=== PATIENT | female | born 1960 | race Caucasian/White ===

== ENCOUNTER → 2017-01-09 | Outpatient (CLI) | payer BC ==
--- NOTE | 2017-01-12 13:11 | MM ---
Reason for exam: screening (asymptomatic). Last mammogram was performed 1 year and 1 month ago. History: Patient is postmenopausal. Physical Findings: A clinical breast exam by your physician is recommended on an annual basis and results should be correlated with mammographic findings. MG Screening Mammo w CAD Bilateral CC and MLO view(s) were taken. Prior study comparison: December 25, 2015, bilateral MG screening mammo w CAD. December 11, 2014, bilateral MG screening mammo w CAD. There are scattered fibroglandular densities. No suspicious abnormality. ASSESSMENT: Negative, BI-RAD 1 RECOMMENDATION: Routine screening mammogram of both breasts in 1 year.
== END | disposition home or self-care (01) ==
LOC: RADMAMWWP 07:54
PROVIDERS: ATTEND Obstetrics & Gynecology
DX: Z12.31 Encounter for screening mammogram for malignant neoplasm of breast (principal)

== ENCOUNTER → 2018-03-19 | Outpatient (CLI) | payer BC ==
--- NOTE | 2018-03-22 10:55 | BD ---
EXAMINATION TYPE: Axial Bone Density DATE OF EXAM: 03/19/2018 COMPARISON: NONE CLINICAL HISTORY: Postmenopausal female. Osteoporosis screening. Height: 5 FT 3 1/2 IN Weight: 233 FRAX RISK QUESTIONS: Secondary Osteoporosis: Current Tobacco Use: YES RISK FACTORS HISTORY OF: Active: YES Postmenopausal woman: AGE 49 MEDICATIONS: Additional Medications: NONE Additional History: EXAM MEASUREMENTS: Bone mineral densitometry was performed using the [employer] System. Bone mineral density as measured about the Lumbar spine is: ----- L1-L4(G/cm2): 1.204 T Score Values are as follows: ----- L2: 0.7 ----- L3: -0.7 ----- L4: 0.1 ----- L1-L4: 0.2 BASELINE Bone mineral density about the R hip (g/cm2): 1.182 Bone mineral density about the L hip (g/cm2): 1.064 T Score values are as follows: -----R Neck: 1.0 -----L Neck: 0.2 -----R Total: 1.8 -----L Total: 0.7 BASELINE IMPRESSION: Normal (Values between +1 and -1 indicate normal bone mass). Consider repeating this study in 5 years or sooner if there is some new clinical indication. NOTE: T-SCORE=SD OF THE YOUNG ADULT MEAN.
--- NOTE | 2018-03-26 08:25 | MM ---
Reason for exam: screening (asymptomatic). Last mammogram was performed 1 year and 2 months ago. History: Patient is postmenopausal. MG 3D Screening Mammo W/Cad Bilateral CC and MLO view(s) were taken. Prior study comparison: January 09, 2017, bilateral MG screening mammo w CAD. December 25, 2015, bilateral MG screening mammo w CAD. There are scattered fibroglandular densities. No suspicious abnormality. No significant changes when compared with prior studies. ASSESSMENT: Negative, BI-RAD 1 RECOMMENDATION: Routine screening mammogram of both breasts in 1 year.
== END | disposition home or self-care (01) ==
LOC: RADMAMWWP 15:24
PROVIDERS: ATTEND Obstetrics & Gynecology
DX: Z12.31 Encounter for screening mammogram for malignant neoplasm of breast (principal); Z78.0 Asymptomatic menopausal state
CPT/HCPCS: 77063; 77067; 77080

== ENCOUNTER → 2019-08-22 | Outpatient (CLI) | payer BC ==
--- NOTE | 2019-08-23 12:02 | MM ---
Reason for exam: screening (asymptomatic). Last mammogram was performed 1 year and 5 months ago. History: Patient is postmenopausal. Physical Findings: A clinical breast exam by your physician is recommended on an annual basis and results should be correlated with mammographic findings. MG 3D Screening Mammo W/Cad Bilateral CC and MLO view(s) were taken. Prior study comparison: March 19, 2018, bilateral MG 3d screening mammo w/cad. January 09, 2017, bilateral MG screening mammo w CAD. There are scattered fibroglandular densities. There is no discrete abnormality. No significant changes when compared with prior studies. ASSESSMENT: Negative, BI-RAD 1 RECOMMENDATION: Routine screening mammogram of both breasts in 1 year.
== END | disposition home or self-care (01) ==
LOC: RADMAMWWP 09:06
PROVIDERS: ATTEND Obstetrics & Gynecology
DX: Z12.31 Encounter for screening mammogram for malignant neoplasm of breast (principal)
CPT/HCPCS: 77063; 77067

== ENCOUNTER → 2020-06-15 | Outpatient (CLI) | payer OTHER | END | disposition home or self-care (01) | LOC: LABPAT 09:55 | PROVIDERS: ATTEND Orthopaedic Surgery | DX: Z01.812 Encounter for preprocedural laboratory examination (principal); M16.11 Unilateral primary osteoarthritis, right hip | CPT/HCPCS: 36415; 86850; 86870; 86880; 86900; 86901; 87070 ==

== ENCOUNTER 2020-06-26 08:50 | Day surgery (SDC) | payer OTHER ==
[2020-06-20 09:57] VITALS: BMI 38.6
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
[~2020-06-26 08:50] MED LIST: ACETAMINOPHEN TAB 500 MG TAB PO PRN; DEXAMETHASONE SOD PHOSPHATE 4 MG/ML 1 ML VIAL IV ONE; LIDOCAINE 1% (10MG/ML) FOR IV START INTRADERMA PRN; MELOXICAM 7.5 MG TAB PO PRN; ONDANSETRON 4 MG/2 ML VIAL IVP PRN; TRANEXAMIC ACID 1,000 MG in SODIUM CHLORIDE 0.9% 100 ML IVPB PRN
[2020-06-26] MEDS: LACTATED RINGERS 1,000 ML IV SCH ×3 (09:45→23:47)
[2020-06-26] MEDS ORDERED: ONDANSETRON 4 MG/2 ML VIAL ONE (09:54)
[2020-06-26] MEDS ORDERED: fentaNYL (PF) 50 MCG/ML 2 ML AMP IV ONE ×2 (10:11→10:15)
[2020-06-26] MEDS ORDERED: MIDAZOLAM 2 MG/2 ML VIAL IV ONE ×2 (10:11→10:15)
[2020-06-26] MEDS ORDERED: PROPOFOL 10 MG/ML 20 ML VIAL IV ONE (10:24)
[2020-06-26] MEDS ORDERED: ROPIVACAINE 5 MG/ML 30 ML VIAL ONE (10:24)
[2020-06-26] MEDS ORDERED: MIDAZOLAM 2 MG/2 ML VIAL ONE (10:24)
[2020-06-26] MEDS ORDERED: SODIUM CHLORIDE 0.9% 100 ML BAG ONE (10:24)
[2020-06-26] MEDS ORDERED: LIDOCAINE 1% INJ 10MG/ML (20 ML MDV) ONE (10:24)
[2020-06-26] MEDS ORDERED: fentaNYL (PF) 50 MCG/ML 2 ML AMP ONE (10:24)
[2020-06-26] MEDS ORDERED: SUCCINYLCHOLINE CHLORIDE VIAL 200 MG/10 ML VIAL IV ONE (10:24)
[2020-06-26] MEDS ORDERED: TRANEXAMIC ACID 1,000 MG/10 ML VIAL ONE (10:24)
[2020-06-26] MEDS ORDERED: SODIUM CHLORIDE 0.9% (PF) 10 ML VIAL ONE (10:24)
[2020-06-26] MEDS ORDERED: HYDROmorphone (PF) 1 MG/ML ONE (10:24)
[2020-06-26] MEDS ORDERED: LACTATED RINGERS 1,000 ML IV ONE ×2 (10:29→12:57)
[2020-06-26] MEDS ORDERED: ceFAZolin 3,000 MG in SODIUM CHLORIDE 0.9% IRRIGATIO 3,000 ML IRRIGATION ONE (11:05)
--- NOTE | 2020-06-26 11:22 | P.ANPRN ---
Procedure Note - Anesthesia - Nerve Block Performed Right Erector Spinae Single Time Out Performed: Yes (1010) Date of Procedure: 06/26/20 Procedure Start Time: : Procedure Stop Time: Location of Patient: PreOp Indication: Acute Post-Operative Pain, Analgesia, Dx/Pain Location, Requested by Surgeon Specifically requested for management of pain by : Jean Carlos Lombardo Sedation Type: Sedate with meaningful contact maintained Preparation: Sterile Prep Position: Left Lateral Catheter: None Needle Types: Pajunk Needle Gauge: 20 Ultrasound used to visualize needle placement: Yes Ultrasound used to observe medication spread: Yes Injectate: 0.5% Ropivacaine (see comment for volume) (20 mL) Blood Aspirated: No Pain Paresthesia on Injection Noted: No Resistance on Injection: Normal Image Stored and Saved: Yes Events: Uneventful and Well Tolerated
[2020-06-26] MEDS ORDERED: HYDROcodone/APAP 7.5-325MG 1 EACH TAB PO PRN (12:51)
[2020-06-26] MEDS ORDERED: NALOXONE 0.4 MG/ML 1 ML VIAL IV PRN (12:51)
--- NOTE | 2020-06-26 13:19 | P.OP ---
Date of Procedure: 06/26/20 Preoperative Diagnosis: Right hip severe osteoarthrosis Postoperative Diagnosis: Same Procedure(s) Performed: Right total hip arthroplastypress-fit- lateral approach Implants: Depuy Corail size 10 standard collared press-fit femoral stem, 36mm+1.5 cobalt chrome femoral head, 52 mm [place] acetabular shell with neutral polyethylene liner. Anesthesia: SADIAA Surgeon: Jean Carlos Lombardo Flight Superintendent #1: Kurt Eagle Estimated Blood Loss (ml): 200 Pathology: other (Femoral head) Condition: stable Disposition: PACU Indications for Procedure: The patient's a 60-year-old female presents with progressive right hip pain secondary osteoarthrosis despite conservative measures. A discussion of the risks and benefits of operative intervention versus continued conservative measures was made with patient. She opted to proceed with surgery. Operative risks to include infection, neurovascular injury, development of blood clots, possible component loosening, possible ligament discrepancy, possible fracture, possible instability and need for subsequent procedures was discussed. Informed consent was obtained. Operative Findings: As below Description of Procedure: The patient was brought to the operating room, and final anesthesia was attempted but was unsuccessful. The patient underwent general endotracheal intubation.. The bony prominences were appropriately padded. The pelvis was stable perpendicular to the floor with a pegboard. The right lower extremity was prepped and draped in normal fashion. A 12 cm incision was then made centered over the greater trochanter extending superiorly to level the ASIS and distally in line with the femoral shaft. The skin and subcutaneous tissues were divided sharply. Electrocautery was used for hemostasis. The fascia ernie and gluteus mira fascia was split in line with the skin incision. The muscle fibers were bluntly dissected proximally. A self-retaining retractor was placed. The anterior and posterior margins of the gluteus medius muscles identified and the anterior two thirds was detached from the greater trochanter with electrocautery. The gluteus minimus tendon was identified and detached in a similar fashion. A wide capsulotomy was performed. The femoral neck fracture was identified in the lower neck cut was made approximately 1 1/2 cm above the level of the lesser trochanter with a sagittal saw at a 45 the shaft. The head was then extracted with a corkscrew. Attention was then paid towards preparing the acetabular. Anterior and posterior retractors were placed. The remaining capsular labral tissues debrided sharply clearly defining the acetabular margins. Began reaming with a 43 mm reamer taking care to initially medialize, then reaming at 45 of abduction and 20 of anteversion. Sequential reaming is performed up to 51 mm. This was down to bleeding bony surface. A trial 52 mm acetabular shell was inserted at 45 of abduction and 20 of anteversion. This was fully seated. There was good rim fit and stability. A neutral polyethylene liner was then impacted. Care taken to avoid any soft tissue interposition. Attention was then paid towards preparing the proximal femur. A box chisel was used to open the metaphyseal region. A canal finder was used to find the femoral canal. Sequential broaching was performed up to a size 10. This is placed in 15 of anteversion with the leg perpendicular floor judging off the trans-epicondylar axis. There is good rotational stability. A calcar mill was used to fashion the medial calcar. A trial standard neck along with a 36 mm + 1.5 trial head was placed. The hip was gently reduced. It was taken through range of motion. I felt to be stable in flexion and extension with internal and external rotation. I felt there was adequate hoahaoism of soft tissue tension. The hip was gently dislocated. The trial components removed. Pulsatile lavage was utilized. The final size 10 standard collared femoral stem was inserted again with the leg perpendicular to the floor in 15 of anteversion. Again there was good rotational stability. A 36 mm + 1.5 cobalt chrome femoral head was gently impacted. The hip was gently reduced. Again it was taken through motion and felt to be stable in flexion and extension with internal and external rotation. Pulsatile lavage was again utilized. With the leg in abduction the gluteus minimus and medius tendons reattached to the greater trochanter with #2 Ethibond suture. There was minimal drainage therefore a deep drain was not placed. The fascia ernie and gluteus mira fascia was closed with #2 Ethibond suture. The subcutaneous tissues were reapproximated interrupted 2-0 Vicryl sutures. The skin was reapproximated with 3-0 subcuticular strata fix suture. Skin tape and adhesive was applied. A sterile dressing was applied. The patient was awoken from sedation and transferred to recovery room in good condition. Blood loss was estimated 200 mL. No complications were incurred. Sponge and needle counts were correct in the case. Kurt QUILES assisted during the major composes case to include exposure, implantation, and closure.
[2020-06-26] MEDS ORDERED: ACETAMINOPHEN TAB 325 MG TAB PO PRN (13:27)
[2020-06-26] MEDS ORDERED: HYDROmorphone 1 MG/ML 1 ML SYRINGE IVP PRN (13:28)
[2020-06-26] MEDS ORDERED: HYDROmorphone 0.5 MG/0.5 ML SYRINGE IVP PRN (13:28)
[2020-06-26] MEDS: HYDROmorphone 0.5 MG/0.5 ML SYRINGE IVP PRN ×3 (13:30→13:50)
[2020-06-26 13:46] VITALS: RESP 16
--- NOTE | 2020-06-26 14:24 | XR ---
EXAMINATION TYPE: XR Hip Limited RT, one view DATE OF EXAM: 06/26/2020 Comparison: 05/17/2020 Clinical History: 60-year-old female Status post hip surgery, assess surgical alignment Findings: Image shows placement of right hip total arthroplasty. Acetabular cup and femoral stem components of prosthesis are well seated without periprosthetic fracture. Alignment grossly anatomic. Scattered sof t tissue air related to recent operation. Impression: Uncomplicated postoperative appearance right total hip arthroplasty.
[2020-06-26] MEDS: PANTOPRAZOLE 40 MG/10 ML VIAL IVP SCH (17:46)
[2020-06-26] MEDS: HYDROcodone/APAP 7.5-325MG 1 EACH TAB PO PRN ×2 (17:47→23:47)
[2020-06-26] MEDS: NICOTINE 14MG/24HR PATCH TRANSDERM SCH (20:22)
[2020-06-26] MEDS: METOPROLOL TARTRATE 25 MG TAB PO SCH (20:22)
[2020-06-26] MEDS ORDERED: SENNOSIDES-DOCUSATE SODIUM 1 EACH TAB PO SCH (21:00)
[2020-06-27 06:40] LABS: Basophils % (A) 0 %; Eosinophils % (A) 0 %; HCT 36.2 % (34.0-46.0); HGB 11.9 gm/dL (11.4-16.0); Lymphocytes # (A) 1.7 k/uL (1.0-4.8); Lymphocytes % (A) 19 %; MCH 30.9 pg (25.0-35.0); MCHC 32.8 g/dL (31.0-37.0); MCV 94.2 fL (80.0-100.0); Mean Platelet Volume 7.9; Monocytes # (A) 0.8 k/uL (0-1.0); Monocytes % (A) 9 %; Neutrophils # (A) 6.6 k/uL (1.3-7.7); Neutrophils % (A) 71 %; Platelet Count 171 k/uL (150-450); RBC 3.85 m/uL (3.80-5.40); RDW 13.1 % (11.5-15.5); WBC 9.3 k/uL (3.8-10.6)
[2020-06-27] MEDS ORDERED: RIVAROXABAN 10 MG TAB PO SCH (09:00)
[2020-06-27] MEDS: HYDROcodone/APAP 7.5-325MG 1 EACH TAB PO PRN (09:05)
[2020-06-27] MEDS: METOPROLOL TARTRATE 25 MG TAB PO SCH (09:06)
[2020-06-27] MEDS: NICOTINE 14MG/24HR PATCH TRANSDERM SCH (09:06)
[2020-06-27] MEDS: PANTOPRAZOLE 40 MG/10 ML VIAL IVP SCH (09:06)
[2020-06-27 10:14] LABS: African American GFR (CKD) 108.4 (60.0-200.0); Anion Gap 5.8 mmol/L (4.00-12.00); BUN/Creat Ratio 21.43 Ratio (12.00-20.00); Calcium 8.8 mg/dL (8.7-10.3); Carbon Dioxide 27.2 mmol/L (21.6-31.8); Non-African American GFR(CKD) 93.5 (60.0-200.0); Potassium 4.3 mmol/L (3.5-5.5)
--- NOTE | 2020-06-27 12:27 | P.DS ---
Providers Date of admission: 06/26/2020 Expected date of discharge: 06/27/20 Attending physician: Jean Carlos Lombardo Consults: 06/26/20 12:55 Consult Physician Routine Consulting Provider: Edwin Roy Consult Reason/Comments: Medical Management; s/p Right Total Hip Arthroplasty Do you want consulting provider notified?: Yes Primary care physician: Edwin Roy MD Hospital Course: Date of admission: 06/26/2020 Date of discharge: 06/27/2020 Admission diagnosis: Right hip osteoarthritis Discharge diagnosis: Same Attending physician: Dr. Lombardo Surgical procedures: Right total hip arthroplasty Brief history: Patient is a 60-year-old female with a history of progressive primary right hip osteoarthritis. At this point patient has failed conservative treatment measures and has opted to proceed with a elective right total hip arthroplasty. Hospital course: Details of patient's surgery can be found in operative report. Patient tolerated the procedure well and was subsequently transported to orthopedic floor. Patient's orthopeidc and medical care was provided daily. Patient had daily laboratory tests performed for evaluation of overall blood counts . Patient had daily physical therapy to include strengthening range of motion as well as education with walker ambulation. Patient was treated with Xarelto for their postoperative DVT prophylaxis during their inpatient stay. Patient was noted to have a relatively uneventful postoperative course. Patient reported satisfactory pain control with oral pain medications by postoperative day 1. Patient showed satisfactory progress with physical therapy. Patient moved steadily through the program and had no difficulty meeting the goals by postoperative day 1. Given patient's otherwise satisfactory course and having met physical therapy goals, plan is to discharge patient home on postoperative day 1. Discharge condition/disposition: Patient will be discharged home in stable condition. Discharge medications: Instructions are given on resumption of patient's normal daily medications per primary care recommendation, in addition patient will be prescribed Trilla 7.5 mg/325 mg; Eliquis 2.5 mg twice a day for 2 weeks. Discharge instructions: 1. Wound care and infection precautions, keep incision dry and covered while showering, no lotions, creams, moisturizers. No soaking, tubs, pools, hottubs. Do not scrub over the incision. 2. Weight-bear as tolerated with walker / cane until follow-up. 3. Ice and elevate when necessary. Do not exceed 20 minutes per hour with ice pack. 4. Utilize compression sleeve until seen at first follow up appointment. 5. Visiting nursing care. 6. Home physical therapy. 7. Pain meds and anticoagulants per prescription. 8. Pain medication has potential to cause constipation. Increase oral fluid and fiber intake. Contact primary care provider if you have not had a bowel movement within 48 hours after discharge 9. No anti-inflammatory medication until discussed at first post operative visit, this including Motrin, Aleve, Mobic, Diclofenac. 10. Follow up in office at 2 weeks postop with Chinmay Foy PA-C / Kurt Eagle PA-C 11. Follow up with your primary care doctor 7-10 days after discharge. 12. Contact [facility] with any questions, . Assessment: Right hip osteoarthritis Procedures: Right total hip arthroplasty Patient Condition at Discharge: Good Plan - Discharge Summary Discharge Rx Participant: Yes New Discharge Prescriptions: New Apixaban [Eliquis] 2.5 mg PO BID #60 tab HYDROcodone/APAP 7.5-325MG [Trilla 7.5] 1 each PO Q6HR PRN #28 tab PRN Reason: Pain No Action Multivitamins, Thera [Multivitamin (formulary)] 1 tab PO DAILY Ergocalciferol (Vitamin D2) [Vitamin D2 (2000 Iu)] 50 mcg PO DAILY Metoprolol Tartrate [Lopressor] 25 mg PO BID Glucosamine/Chondr Tucker A Sod [Osteo Bi-Flex Caplet] 1 each PO DAILY Meloxicam 15 mg PO DAILY Discharge Medication List Ergocalciferol (Vitamin D2) [Vitamin D2 (2000 Iu)] 50 mcg PO DAILY 06/20/20 [History] Glucosamine/Chondr Tucker A Sod [Osteo Bi-Flex Caplet] 1 each PO DAILY 06/20/20 [History] Meloxicam 15 mg PO DAILY 06/20/20 [History] Metoprolol Tartrate [Lopressor] 25 mg PO BID 06/20/20 [History] Multivitamins, Thera [Multivitamin (formulary)] 1 tab PO DAILY 06/20/20 [History] Apixaban [Eliquis] 2.5 mg PO BID #60 tab 06/27/20 [Rx] HYDROcodone/APAP 7.5-325MG [Trilla 7.5] 1 each PO Q6HR PRN #28 tab 06/27/20 [Rx] Follow up Appointment(s)/Referral(s): [facility] Visiting Nurse, [NON-STAFF] - As Needed John Foy, PAC [PHYSICIAN TECHNICAL DESIGNER] - 2 Weeks Activity/Diet/Wound Care/Special Instructions: Orthopedic Discharge Instructions: 1. Wound care and infection precautions, keep incision dry and covered while showering, no lotions, creams, moisturizers. No soaking, pools, hot tubs. Do not scrub over incision. 2. Weight-bear as tolerated with walker / cane until follow-up. 3. Ice and elevate when necessary. Do not exceed 20 minutes per hour with ice pack. 4. Utilize compression sleeve until seen at first follow up appointment. 5. Pain meds and anticoagulants per prescription. 6. Pain medication has potential to cause constipation. Increase oral fluid and fiber intake. Contact primary care provider if you have not had a bowel movement within 48 hours after discharge. 7. No anti-inflammatory medication until discussed at first post operative visit, this including Motrin, Aleve, Mobic, Diclofenac. 8. Follow up in office at 2 weeks postop with Chinmay Foy PA-C / Kurt Eagle PA-C 9. Follow up with your primary care doctor 7-10 days after discharge. 10. Contact [facility] with any questions, . Discharge Disposition: HOME WITH HOME HEALTH SERVICES
--- NOTE | 2020-06-27 12:33 | P.PN ---
Subjective Progress Note Date: 06/27/20 Principal diagnosis: Right total hip arthroplasty Upon entering room patient was sitting in chair. Patient states she was up with physical therapy this morning and was able to go up-and-down stairs without issue. Patient says she has been up into the bathroom multiple times. She says she has been using incentive spirometer as well. She says she does not have any pain while sitting in chair. But she does again to have pain after physical therapy or when ambulating. Patient denies fever, chest pain, shortness of breath, change in vision. Patient says she would like to go home today she does live at home with Objective - Vital Signs Vital signs: Vital Signs Temp 97.3 F L 06/27/20 05:00 Pulse 66 06/27/20 08:00 Resp 16 06/27/20 08:00 BP 129/72 06/27/20 05:00 Pulse Ox 91 L 06/27/20 05:00 Intake & Output 06/26/20 06/27/20 06/27/20 18:59 06:59 18:59 Intake Total 1851 960 236 Output Total 200 Balance 1651 960 236 Weight 102.058 kg Intake: IV 1451 Intake, IV Titration 400 250 Amount Lactated Ringers 1,000 ml 200 @ 20 mls/hr IV .Q24H LUIS Rx#:[id number] ceFAZolin 2 gm In Sodium 400 50 Chloride 0.9% 50 ml @ 100 mls/hr IVPB Q8H LUIS Rx#: [id number] Oral 710 236 Output: Estimated Blood Loss 200 Other: # Voids 3 - Exam : Incision is clean, dry, and intact. The exofin fusion tape is in good condition. There is minimal soft tissue swelling and ecchymosis surrounding the medial and lateral aspects of the incision. Calf is soft, no tenderness with palpation. Plantar flexion, dorsiflexion, EHL, FHL are intact. Sensory exam to light touch throughout the extremity is intact, dorsal pedis pulses 2+. - Labs CBC & Chem 7: 06/27/20 06:10 06/27/20 06:10 Labs: Abnormal Lab Results - Last 24 Hours (Table) 06/27/20 Range/Units 06:10 BUN/Creatinine Ratio 21.43 H (12.00-20.00) Ratio Glucose 119 H (70-110) mg/dL Assessment and Plan Plan: Assessment: Postoperative day 1 status post right total hip arthroplasty Plan: 1. Appreciate medical management 2. Pain managementstable at this time. Will go home with Jackson 7.5 mg/325 mg. Take stool softener as needed. 3. Continue with physical therapy, including gait/stair training. 4. Continue with daily Xarelto inpatient for DVT prophylaxis. Outpatient begin Eliquis 2.5 mg BID x two weeks. 5. Discharge planning. 6. Anticipated discharge today, 06/27/2020. Time with Patient: Less than 30
[2020-06-27 12:55] VITALS: BP 120/69; PULSE 63; TEMP 98
[2020-06-28] MEDS ORDERED: PANTOPRAZOLE 40 MG TABLET PO SCH (07:30)
== END 2020-06-27 14:48 | disposition home health service (06) ==
LOC: OR 08:50 → 5NMEDONC 13:49 → OR 06-27 14:48
PROVIDERS: ATTEND Orthopaedic Surgery
DX: M16.11 Unilateral primary osteoarthritis, right hip (principal); I48.91 Unspecified atrial fibrillation; F17.210 Nicotine dependence, cigarettes, uncomplicated; Z79.899 Other long term (current) drug therapy; Z88.2 Allergy status to sulfonamides
CPT/HCPCS: 97110; 97161; 97535; 97165; 64999; 76942; 80048; 85025; 88300; 87635; 73501; 27130; C1776; S4990 ×2; J2250; J0330; J1100; J0690 ×3; J2405; J2001; J3010; J1170 ×2; J2795; J2704; C9113 ×2; 36415; 86850; 86870; 86880; 86900; 86901

== ENCOUNTER → 2021-01-09 | Outpatient (CLI) | payer OTHER ==
--- NOTE | 2021-01-11 14:11 | MM ---
Reason for exam: screening (asymptomatic). Last mammogram was performed 1 year and 5 months ago. History: Patient is postmenopausal. Took hormonal contraceptives for 6 months. Physical Findings: A clinical breast exam by your physician is recommended on an annual basis and results should be correlated with mammographic findings. MG 3D Screening Mammo W/Cad Bilateral CC and MLO view(s) were taken. Prior study comparison: August 22, 2019, bilateral MG 3d screening mammo w/cad. March 19, 2018, bilateral MG 3d screening mammo w/cad. There are scattered fibroglandular densities. There is a tiny chronic nodularity in the left breast. There is no discrete abnormality. ASSESSMENT: Negative, BI-RAD 1 RECOMMENDATION: Routine screening mammogram of both breasts in 1 year.
== END | disposition home or self-care (01) ==
LOC: RADMAMWWP 10:19
PROVIDERS: ATTEND Obstetrics & Gynecology
DX: Z12.31 Encounter for screening mammogram for malignant neoplasm of breast (principal); Z78.0 Asymptomatic menopausal state
CPT/HCPCS: 77063; 77067

== ENCOUNTER → 2022-02-03 | Outpatient (CLI) | payer OTHER ==
--- NOTE | 2022-02-04 08:11 | MM ---
Reason for Exam: Screening (asymptomatic). Last screening mammogram was performed 12 month(s) ago. Patient History: Menarche at age 12. First Full-Term at age 25. Postmenopausal. Hormonal Contraceptives for 6 months. Risk Values: Joann 5 year model risk: 1.7%. NCI Lifetime model risk: 7.4%. Prior Study Comparison: 03/19/2018 Bilateral Screening Mammogram, [facility]. 08/22/2019 Bilateral Screening Mammogram, [facility]. 01/09/2021 Bilateral Screening Mammogram, [facility]. Tissue Density: There are scattered fibroglandular densities. Findings: Analyzed By CAD. Benign-appearing right axillary lymph node redemonstrated. There is no suspicious group of microcalcifications or new suspicious mass in either breast. Overall Assessment: Negative, BI-RAD 1 Management: Screening Mammogram of both breasts in 1 year. A clinical breast exam by your physician is recommended on an annual basis and results should be correlated with mammographic findings. Electronically signed and approved by: Oscar Mullen M.D.
== END | disposition home or self-care (01) ==
LOC: RADMAMWWP 11:46
PROVIDERS: ATTEND Obstetrics & Gynecology
DX: Z12.31 Encounter for screening mammogram for malignant neoplasm of breast (principal); Z78.0 Asymptomatic menopausal state
CPT/HCPCS: 77063; 77067

== ENCOUNTER → 2023-02-05 | Outpatient (CLI) | payer OTHER ==
--- NOTE | 2023-02-06 13:12 | MM ---
Reason for Exam: Screening (asymptomatic). Last screening mammogram was performed 12 month(s) ago. Patient History: Menarche at age 12. First Full-Term at age 25. Postmenopausal. Hormonal Contraceptives for 6 months. Risk Values: Joann 5 year model risk: 1.8%. NCI Lifetime model risk: 7.2%. Prior Study Comparison: 08/22/2019 Bilateral Screening Mammogram, [facility]. 01/09/2021 Bilateral Screening Mammogram, [facility]. 02/03/2022 Bilateral MG 3D screening mammo w/cad, [facility]. Tissue Density: The breast tissue is almost entirely fat. Findings: Analyzed By CAD. There is no suspicious group of microcalcifications or new suspicious mass. Overall Assessment: Negative, BI-RAD 1 Management: Screening Mammogram of both breasts in [address] [facility] will attempt to contact patient to return for supplemental views and ultrasound if indicated. Patient should continue monthly self-breast exams. A clinical breast exam by your physician is recommended on an annual basis. This exam should not preclude additional follow-up of suspicious palpable abnormalities. Note on Joann scores and lifetime risk: 1. A Joann score greater than 3% is considered moderate risk. If this is the case, consider specialist referral to assess eligibility for a risk reducing agent. 2. If overall lifetime risk for the development of breast cancer is 20% or higher, the patient may qualify for future screening with alternating mammogram and breast MRI. Electronically signed and approved by: Mark Dior DO
== END | disposition home or self-care (01) ==
LOC: RADMAMWWP 08:28
PROVIDERS: ATTEND Obstetrics & Gynecology
DX: Z12.31 Encounter for screening mammogram for malignant neoplasm of breast (principal); Z78.0 Asymptomatic menopausal state
CPT/HCPCS: 77063; 77067

== ENCOUNTER → 2023-03-04 | Outpatient (CLI) | payer OTHER ==
--- NOTE | 2023-03-11 22:42 | CTL ---
EXAMINATION TYPE: CT Low Dose Lung DATE OF EXAM: 03/04/2023 3:43 PM CLINICAL INDICATION:Female, 63 years old with history of F17.210 NICOTINE DEPENDENCE, CIGARETTES, [facility] OMPLIC; CURRENT SMOKER, 1/2 PACK A DAY X40 YEARS , history of tobacco use. COMPARISON: No prior available, this is considered a baseline scan TECHNIQUE: CT scan of the chest obtained without contrast from approximately the lung apices through the upper abdomen. Axial, coronal and sagittal reformatted images were obtained. Low dose technique w as utilized for nodule screening purposes. CT DLP: 133.60 mGycm, Automated exposure control for dose reduction was used. CT Contrast: Contrast used: None Oral contrast used: None FINDINGS: Lack of intravenous contrast and low dose technique limits the evaluation of the vascular and soft ti ssue structures. LUNGS: No evidence of pulmonary fibrosis. No evidence of focal consolidation, pneumothorax or pleural effusion. There are emphysematous changes bilaterally, minimal in the upper lobes. Nodules: RUL: None RML: None RLL: None DIAZ: None LLL: None AIRWAY: Patent and unremarkable. LOWER NECK: No significant findings. HEART AND VASCULATURE: Heart is mildly enlarged.. Mild coronary artery calcifications. No pericardial effusion. Mild atherosclerotic calcifications of the aorta. Aorta is ectatic at 3.8 cm. Pulmonary t runk is borderline mildly enlarged at 3 cm, this can be seen with early pulmonary hypertension. MEDIASTINUM: No gross evidence of adenopathy. SOFT TISSUES/LYMPH NODES: Unremarkable soft tissues. No clearly enlarged axillary adenopathy. UPPER ABDOMEN: Postcholecystectomy. MUSCULOSKELETAL: No acute osseous abnormalities. Mild to moderate degenerative disc disease changes throughout the visualized spine. IMPRESSION: 1. No clinically significant pulmonary nodules. 2. Minimal emphysematous changes in the upper lobes. 3. Mild atherosclerotic calcification of the aorta and coronary arteries. CT LUNG RAD AND CT CHEST RECOMMENDATION: Lung-Rad 1 Negative: Continue annual screening with LDCT in 12 months. C Modifier (Personal history of lung cancer?): No. S Modifier (Other clinically significant or potentially significant findings?): No. Other significant or potentially significant abnormalities: Recommend smoking cessation (if current smoker), or continuation of smoking cessation (if prior smoke r). Annual screening for lung cancer with low-dose computed tomography is recommended in adults ages 55 to 77 years who have a 30 pack-year smoking history and currently smoke or have quit within the pa st 15 years. Screening should be discontinued once a person has not smoked for 15 years or develops a health problem that substantially limits life expectancy or the ability or willingness to have curat maggi lung surgery. Lung rads 2021 [email or web address]
== END | disposition home or self-care (01) ==
LOC: RADCTMAIN 14:59
PROVIDERS: ATTEND Family Medicine
DX: Z12.2 Encounter for screening for malignant neoplasm of respiratory organs (principal); F17.210 Nicotine dependence, cigarettes, uncomplicated; I25.10 Atherosclerotic heart disease of native coronary artery without angina pectoris; J43.9 Emphysema, unspecified
CPT/HCPCS: 71271

== ENCOUNTER → 2024-03-29 | Outpatient (CLI) | payer MEDICARE, OTHER ==
--- NOTE | 2024-03-29 17:53 | CTL ---
EXAMINATION TYPE: CT Low Dose Lung DATE OF EXAM: 03/29/2024 3:52 PM COMPARISON: 03/04/2023 SCREENING VISIT: Initial CT DIAGNOSTIC QUALITY: Satisfactory CLINICAL INDICATION: Female, 64 years old with history of Z12.2 LUNG CA SCR F17.210 CURRENT SMOKER, P ERSONAL HX OF NICOTINE DEPENDENCE 1PPD X 50 YEARS CURRENT SMOKER, Lung cancer screening, History of t obacco use. TECHNIQUE: Low dose computed tomography scan was performed through the chest at 1 mm thick sections a nd reconstructed images in the coronal plane at 1 mm thick sections. Contrast used: mL of , (none if empty) Oral contrast used: (none if empty) CT DLP: 137.6 mGycm, Automated exposure control for dose reduction was used. CT CTDI: 4.0 mGy, Automated subsequent exposure control for dose reduction was used. FINDINGS: LUNG NODULES: None. LUNGS: COPD: Severity: None Fibrosis: Severity: None Lymph nodes: None Other findings: None RIGHT PLEURAL SPACE: Effusion: None Calcification: None Thickening: None Pneumothorax: None LEFT PLEURAL SPACE: Effusion: None Calcification: None Thickening: None Pneumothorax: None HEART: Other: Ascending thoracic aorta at the level the main pulmonary artery measures 3.8 cm. The main pul monary artery at the bifurcation measures 3.1 cm. Heart Size: Normal Coronary calcification: Minimal Pericardial effusion: None OTHER FINDINGS: Upper abdomen: Normal Bony thorax: Normal Supraclavicular region: Normal IMPRESSION: No suspicious changes to suggest primary or metastatic neoplasm. FOLLOW UP CT CHEST RECOMMENDATION: Follow-up low-dose CT chest one year CT LUNG RAD: Lung-Rad 1 Negative [facility], , 03/29/2024 5:51 PM
== END | disposition home or self-care (01) ==
LOC: RADCTMAIN 15:01
PROVIDERS: ATTEND Family Medicine
DX: Z12.2 Encounter for screening for malignant neoplasm of respiratory organs (principal); F17.210 Nicotine dependence, cigarettes, uncomplicated
CPT/HCPCS: 71271

== ENCOUNTER → 2024-05-23 | Outpatient (CLI) | payer MEDICARE, OTHER ==
--- NOTE | 2024-05-23 11:35 | MM ---
Reason for Exam: Screening (asymptomatic). Last mammogram was performed 1 year(s) and 4 month(s) ago. Patient History: Menarche at age 12. First Full-Term at age 25. Postmenopausal. Hormonal Contraceptives for 6 months. Risk Values: Joann 5 year model risk: 1.8%. NCI Lifetime model risk: 6.9%. Prior Study Comparison: 01/09/2021 Bilateral Screening Mammogram, [facility]. 02/03/2022 Bilateral MG 3D screening mammo w/cad, [facility]. 02/05/2023 Bilateral MG 3D screening mammo w/cad, [facility]. Tissue Density: There are scattered areas of fibroglandular density. Findings: Analyzed By CAD. There is no suspicious group of microcalcifications or new suspicious mass in either breast. Overall Assessment: Negative, BI-RAD 1 Management: Screening Mammogram of both breasts in 1 year. . Patient should continue monthly self-breast exams. A clinical breast exam by your physician is recommended on an annual basis. This exam should not preclude additional follow-up of suspicious palpable abnormalities. Note on Joann scores and lifetime risk: 1. A Joann score greater than 3% is considered moderate risk. If this is the case, consider specialist referral to assess eligibility for a risk reducing agent. 2. If overall lifetime risk for the development of breast cancer is 20% or higher, the patient may qualify for future screening with alternating mammogram and breast MRI. [facility], , 05/23/2024 11:32 AM. Electronically signed and approved by: Oscar Mullen M.D.
== END | disposition home or self-care (01) ==
LOC: RADMAMWWP 10:47
PROVIDERS: ATTEND Family Medicine
DX: Z12.31 Encounter for screening mammogram for malignant neoplasm of breast (principal); R92.323 Mammographic fibroglandular density, bilateral breasts; Z78.0 Asymptomatic menopausal state; Z92.0 Personal history of contraception
CPT/HCPCS: 77063; 77067